=== PATIENT | male | born 1995 | race African-American/Black ===

== ENCOUNTER 2025-02-08 18:49 | Emergency (ER) | payer SELFPAY ==
[~2025-02-08] VITALS: Ht 182.9 cm; Wt 76.7 kg
[2025-02-08 19:17] VITALS: BP 139/78; TEMP 98; O2SAT 96
[2025-02-08] MEDS ORDERED: BENZ-13 PO (20:36)
[2025-02-08] MEDS ORDERED: ALBU8.5H8 INH (20:36)
[2025-02-08] MEDS ORDERED: PSEU120T99 PO (20:36)
== END 2025-02-08 20:45 | disposition home or self-care (01) ==
LOC: ER 18:52
DX: J06.9 Acute upper respiratory infection, unspecified (principal); H92.01 Otalgia, right ear; R07.89 Other chest pain; J45.909 Unspecified asthma, uncomplicated; Z88.0 Allergy status to penicillin
CPT/HCPCS: 71045-TC